=== PATIENT | female | born 1960 | race Caucasian/White ===

== ENCOUNTER → 2016-05-27 | Outpatient (CLI) | payer BC ==
[~2016-05-27] MED LIST: ARMOUR THYROID30 M1 PO; ARMOUR THYROID60 M1 PO; ASPIR 8181 MG PO; CYTOMEL 25 MCG25 MC1 PO; EXCEDRIN CAPLE1 EACH; FEMARA2.5 MG PO; FISH OIL 1,001000 M2 PO; GINKGO BILOBA120 MG PO; LOSARTAN POTASS50 MG PO; MULTI VITAMIN1 EACH; UNICOMPLEX M TA1 TA1 PO; VENLAFAXIN37.5 MG/1 PO
== END ==
LOC: NUC 09:24
DX: M85.80 Other specified disorders of bone density and structure, unspecified site (principal); M81.0 Age-related osteoporosis without current pathological fracture; N95.9 Unspecified menopausal and perimenopausal disorder

== ENCOUNTER → 2016-11-11 | Outpatient (CLI) | payer BC | LOC: RAD 01:29 | DX: C50.212 Malignant neoplasm of upper-inner quadrant of left female breast (principal) ==

== ENCOUNTER → 2016-12-03 | Outpatient (CLI) | payer BC | LOC: ULTRA 01:12 | DX: N60.02 Solitary cyst of left breast (principal); N60.01 Solitary cyst of right breast ==

== ENCOUNTER → 2017-04-22 | Outpatient (CLI) | payer BC | LOC: ULTRA 10:45 | DX: N60.02 Solitary cyst of left breast (principal) ==

== ENCOUNTER → 2017-11-24 | Outpatient (CLI) | payer BC | LOC: RAD 01:25 | DX: C50.912 Malignant neoplasm of unspecified site of left female breast (principal); L40.50 Arthropathic psoriasis, unspecified; Z17.0 Estrogen receptor positive status [ER+] ==

== ENCOUNTER → 2017-12-24 | Outpatient (CLI) | payer BC | LOC: NUC 12:57 | DX: M85.89 Other specified disorders of bone density and structure, multiple sites (principal); M81.0 Age-related osteoporosis without current pathological fracture ==

== ENCOUNTER → 2018-11-10 | Outpatient (CLI) | payer OTHER | LOC: RAD 02:51 | DX: Z12.31 Encounter for screening mammogram for malignant neoplasm of breast (principal) ==

== ENCOUNTER → 2019-11-07 | Outpatient (CLI) | payer OTHER | LOC: RAD 11:08 | PROVIDERS: ATTEND Internal Medicine | DX: Z12.31 Encounter for screening mammogram for malignant neoplasm of breast (principal) ==

== ENCOUNTER → 2020-01-31 | Outpatient (CLI) | payer OTHER | LOC: CAT 11:23 | PROVIDERS: ATTEND Internal Medicine | DX: Z13.6 Encounter for screening for cardiovascular disorders (principal); I25.10 Atherosclerotic heart disease of native coronary artery without angina pectoris; E78.00 Pure hypercholesterolemia, unspecified ==

== ENCOUNTER → 2020-12-25 | Outpatient (CLI) | payer OTHER | LOC: BC 13:13 | PROVIDERS: ATTEND Internal Medicine Hematology & Oncology | DX: Z12.31 Encounter for screening mammogram for malignant neoplasm of breast (principal); Z85.3 Personal history of malignant neoplasm of breast ==